=== PATIENT | male | born 1970 | race Caucasian/White ===

== ENCOUNTER 2018-10-26 22:07 | Emergency (ER) | payer MEDICAID ==
[~2018-10-26] VITALS: Ht 185.4 cm; Wt 119.3 kg
[2018-10-26] MEDS ORDERED: CYCL-1 PO ×2 (23:12→23:44)
--- NOTE | 2018-10-26 23:38 | NUR ---
MARCIO MANUEL TALKING WITH PT ABOUT PLAN OF CARE AND DC INSTRUCTION.
[2018-10-26 23:50] VITALS: BP 139/105
== END 2018-10-26 23:51 | disposition home or self-care (01) ==
LOC: ER 22:08
DX: M94.0 Chondrocostal junction syndrome [Tietze] (principal); I10 Essential (primary) hypertension; F41.9 Anxiety disorder, unspecified; F32.9 Major depressive disorder, single episode, unspecified; Z56.0 Unemployment, unspecified; Z79.899 Other long term (current) drug therapy
CPT/HCPCS: 93005; 99283